=== PATIENT | female | born 1980 | race Caucasian/White ===

== ENCOUNTER → 2016-09-30 | Outpatient (CLI) | payer BC ==
[~2016-09-30] MED LIST: BCP TD; IBU-TAB200 MG PO; MAALOX ANTACID1 TAB PO; NEXIUM 20MG CAP20 MG PO; TUMS 500500 MG PO; VITAMIN C BUFF500 MG PO; ZYRTEC10 MG PO
== END ==
LOC: BHSO 10:54
DX: F31.81 Bipolar II disorder (principal)

== ENCOUNTER → 2016-10-04 | Outpatient (CLI) | payer BC | LOC: BHSO 11:21 | DX: F41.1 Generalized anxiety disorder (principal) ==

== ENCOUNTER → 2016-10-07 | Outpatient (CLI) | payer BC | LOC: BHSO 09:02 | DX: F31.81 Bipolar II disorder (principal) ==

== ENCOUNTER → 2016-10-14 | Outpatient (CLI) | payer BC | LOC: BHSO 10:58 | DX: F33.1 Major depressive disorder, recurrent, moderate (principal) ==

== ENCOUNTER → 2016-10-22 | Outpatient (CLI) | payer BC | LOC: BHSO 14:58 | DX: F31.31 Bipolar disorder, current episode depressed, mild (principal) ==

== ENCOUNTER → 2016-10-28 | Outpatient (CLI) | payer BC | LOC: BHSO 09:03 | DX: F31.81 Bipolar II disorder (principal) ==

== ENCOUNTER → 2016-11-11 | Outpatient (CLI) | payer BC | LOC: BHSO 08:59 | DX: F31.81 Bipolar II disorder (principal) ==

== ENCOUNTER → 2016-11-18 | Outpatient (CLI) | payer BC | LOC: BHSO 08:58 | DX: F31.81 Bipolar II disorder (principal) ==

== ENCOUNTER → 2016-12-02 | Outpatient (CLI) | payer BC | LOC: BHSO 10:59 | DX: F31.81 Bipolar II disorder (principal) ==

== ENCOUNTER → 2016-12-30 | Outpatient (CLI) | payer BC | LOC: BHSO 09:01 | DX: F31.81 Bipolar II disorder (principal) ==

== ENCOUNTER → 2017-01-06 | Outpatient (CLI) | payer BC | LOC: BHSO 10:55 | DX: F31.81 Bipolar II disorder (principal) ==

== ENCOUNTER → 2017-01-13 | Outpatient (CLI) | payer BC | LOC: BHSO 10:55 | DX: F31.81 Bipolar II disorder (principal) ==

== ENCOUNTER → 2017-01-20 | Outpatient (CLI) | payer BC | LOC: BHSO 10:59 | DX: F31.81 Bipolar II disorder (principal) ==

== ENCOUNTER → 2017-01-27 | Outpatient (CLI) | payer BC | LOC: BHSO 11:17 | DX: F31.73 Bipolar disorder, in partial remission, most recent episode manic (principal) ==

== ENCOUNTER → 2017-02-03 | Outpatient (CLI) | payer BC | LOC: BHSO 09:11 | DX: F31.81 Bipolar II disorder (principal) ==

== ENCOUNTER → 2017-02-17 | Outpatient (CLI) | payer BC | LOC: BHSO 10:58 | DX: F31.81 Bipolar II disorder (principal) ==

== ENCOUNTER → 2017-03-10 | Outpatient (CLI) | payer BC | LOC: BHSO 11:00 | DX: F31.81 Bipolar II disorder (principal) ==

== ENCOUNTER → 2017-03-24 | Outpatient (CLI) | payer BC | LOC: BHSO 11:00 | DX: F31.81 Bipolar II disorder (principal) ==

== ENCOUNTER → 2017-04-07 | Outpatient (CLI) | payer BC | LOC: BHSO 11:05 | DX: F31.81 Bipolar II disorder (principal) ==

== ENCOUNTER → 2017-04-14 | Outpatient (CLI) | payer BC | LOC: BHSO 11:39 | DX: F41.1 Generalized anxiety disorder (principal) ==

== ENCOUNTER → 2017-04-21 | Outpatient (CLI) | payer BC | LOC: BHSO 10:59 | DX: F31.81 Bipolar II disorder (principal) ==

== ENCOUNTER → 2017-05-11 | Outpatient (CLI) | payer BC | LOC: BHSO 11:01 | DX: F33.0 Major depressive disorder, recurrent, mild (principal) ==

== ENCOUNTER → 2017-05-26 | Outpatient (CLI) | payer BC | LOC: BHSO 10:59 | DX: F41.1 Generalized anxiety disorder (principal) ==

== ENCOUNTER → 2017-06-09 | Outpatient (CLI) | payer BC | LOC: BHSO 10:57 | DX: F41.1 Generalized anxiety disorder (principal) ==

== ENCOUNTER → 2017-06-30 | Outpatient (CLI) | payer BC | LOC: BHSO 11:05 | DX: F31.81 Bipolar II disorder (principal) ==

== ENCOUNTER → 2017-07-21 | Outpatient (CLI) | payer BC | LOC: BHSO 11:14 | DX: F41.1 Generalized anxiety disorder (principal) ==

== ENCOUNTER → 2017-08-04 | Outpatient (CLI) | payer BC | LOC: BHSO 10:55 | DX: F31.81 Bipolar II disorder (principal) ==

== ENCOUNTER → 2017-08-17 | Outpatient (CLI) | payer BC | LOC: BHSO 13:58 | DX: F31.81 Bipolar II disorder (principal) ==

== ENCOUNTER → 2017-09-01 | Outpatient (CLI) | payer BC | LOC: BHSO 10:56 | DX: F31.81 Bipolar II disorder (principal) ==

== ENCOUNTER → 2017-09-09 | Outpatient (CLI) | payer BC | LOC: BHSO 11:42 | DX: F41.1 Generalized anxiety disorder (principal) ==

== ENCOUNTER → 2017-09-15 | Outpatient (CLI) | payer BC | LOC: BHSO 11:01 | DX: F31.81 Bipolar II disorder (principal) ==

== ENCOUNTER → 2017-09-29 | Outpatient (CLI) | payer BC | LOC: BHSO 16:06 | DX: F31.81 Bipolar II disorder (principal) ==

== ENCOUNTER → 2017-10-25 | Outpatient (CLI) | payer BC | LOC: BHSO 11:08 | DX: F31.81 Bipolar II disorder (principal) ==

== ENCOUNTER → 2017-10-28 | Outpatient (CLI) | payer BC | LOC: BHSO 11:37 | DX: F41.1 Generalized anxiety disorder (principal) | CPT/HCPCS: G0463 ==

== ENCOUNTER → 2018-01-05 | Outpatient (CLI) | payer BC | LOC: BHSO 11:20 | DX: F31.81 Bipolar II disorder (principal) | CPT/HCPCS: G0463 ==

== ENCOUNTER → 2018-01-12 | Outpatient (CLI) | payer BC | LOC: BHSO 15:59 | DX: F33.1 Major depressive disorder, recurrent, moderate (principal) ==

== ENCOUNTER → 2018-02-16 | Outpatient (CLI) | payer BC | LOC: BHSO 15:56 | DX: F41.1 Generalized anxiety disorder (principal) ==

== ENCOUNTER → 2018-02-23 | Outpatient (CLI) | payer BC | LOC: BHSO 11:39 | DX: F31.81 Bipolar II disorder (principal) | CPT/HCPCS: G0463 ==

== ENCOUNTER → 2018-03-16 | Outpatient (CLI) | payer BC | LOC: BHSO 16:02 | DX: F33.2 Major depressive disorder, recurrent severe without psychotic features (principal) ==

== ENCOUNTER → 2018-03-31 | Outpatient (CLI) | payer BC | LOC: BHSO 10:56 | DX: F31.81 Bipolar II disorder (principal) | CPT/HCPCS: G0463 ==

== ENCOUNTER → 2018-04-12 | Outpatient (CLI) | payer BC | LOC: BHSO 16:00 | DX: F41.1 Generalized anxiety disorder (principal) ==

== ENCOUNTER → 2018-04-27 | Outpatient (CLI) | payer BC | LOC: BHSO 10:42 | DX: F31.81 Bipolar II disorder (principal) | CPT/HCPCS: G0463 ==

== ENCOUNTER → 2018-06-01 | Outpatient (CLI) | payer BC | LOC: BHSO 11:42 | DX: F31.81 Bipolar II disorder (principal) | CPT/HCPCS: G0463 ==

== ENCOUNTER → 2018-06-29 | Outpatient (CLI) | payer BC | LOC: BHSO 09:39 | DX: F41.1 Generalized anxiety disorder (principal) | CPT/HCPCS: G0463 ==

== ENCOUNTER → 2018-08-11 | Outpatient (CLI) | payer BC | LOC: BHSO 11:22 | DX: F31.81 Bipolar II disorder (principal) | CPT/HCPCS: G0463 ==

== ENCOUNTER 2018-09-05 05:48 | Inpatient (IN) | payer BC ==
[~2018-09-05] VITALS: Ht 170.2 cm; Wt 107.7 kg
[2018-09-05] VITALS (27 sets, daily range): BP systolic 130–177; BP diastolic 82–113; PULSE 75–107; TEMP 98.1–98.9
[2018-09-05] MEDS ORDERED: ZOLOFT 50MG50 MG PO (06:43)
[2018-09-05] MEDS ORDERED: LAMICTAL200 MG PO (06:43)
[2018-09-05] MEDS ORDERED: SEROQUEL 2525 MG/TAB PO (06:44)
[2018-09-05] MEDS ORDERED: ZYRTEC 10MG10 MG PO (06:44)
[2018-09-05] MEDS ORDERED: PRILOSEC10 MG PO (06:45)
[2018-09-05] MEDS ORDERED: FOLIC ACID 11 MG/TA1 PO (06:45)
[2018-09-05] MEDS ORDERED: PRENATAL MVI (06:46)
[2018-09-05 06:58] LABS: RED BLOOD COUNT 3.72 M/mm3 (4.10-5.30)
[2018-09-05 06:59] LABS: BASO % 0.3 % (0.0-2.0); EOS # 0.1 (0.0-0.7); EOS % 1.5 % (0-4.0); GRAN # 3.6 (1.4-6.5); GRAN % 59.4 % (42.2-75.2); HEMOGLOBIN 11.6 g/dl (12.5-16.0); LYMPH # 1.8 (1.2-3.4); LYMPH % 29.3 % (20.0-51.0); MEAN CELL VOLUME 91 fl (80.0-100.0); MEAN CORPUSCULAR HEMOGLOBIN 31 pg (27.0-31.0); MEAN CORPUSCULAR HGB CONC 34 g/dl (33.0-37.0); MEAN PLATELET VOLUME 12.1 fl (7.4-10.4); MONO # 0.6 (0.1-0.6); PLATELET COUNT 156 K/mm3 (130-400); REDCELL DISTRIBUTION WIDTH-CV 13.6 % (11.5-14.5)
[2018-09-06 00:50] VITALS: BP 153/91; PULSE 78; TEMP 98.1
[2018-09-06 04:00] VITALS: BP 145/96; PULSE 88; TEMP 98.2
[2018-09-06 08:00] VITALS: BP 144/86; PULSE 86; TEMP 98.5
[2018-09-06 12:00] VITALS: BP 146/88; PULSE 80; TEMP 98
[2018-09-06 17:30] VITALS: BP 140/92; PULSE 103; TEMP 98.1
[2018-09-06 22:15] VITALS: BP 152/86; PULSE 95; TEMP 98.4
[2018-09-07 07:10] VITALS: BP 160/94; PULSE 105; TEMP 98.1
[2018-09-07 12:10] VITALS: BP 149/87; PULSE 94; TEMP 98.1
[2018-09-07 16:15] VITALS: BP 143/73; PULSE 100; TEMP 98
[2018-09-07 20:30] VITALS: BP 150/90; PULSE 93; TEMP 98.4
[2018-09-08 00:30] VITALS: BP 146/96; PULSE 97; TEMP 98.8
[2018-09-08 04:00] VITALS: BP 150/88; PULSE 96; TEMP 98.2
[2018-09-08] MEDS ORDERED: PROCARDIA XL90 MG PO (08:47)
[2018-09-08] MEDS ORDERED: PERCOCET 325 MG1 TA2 PO (08:47)
[2018-09-08] MEDS ORDERED: MOTRIN 800800 MG/TAB PO (08:47)
[2018-09-08 09:30] VITALS: BP 156/97; PULSE 88
== END 2018-09-08 18:00 | disposition home or self-care (01) | DRG 788 ==
LOC: OB 05:48
PROVIDERS: Obstetrics & Gynecology
PROC: 10D00Z1 Extraction of Products of Conception, Low, Open Approach (ICD-10-PCS; principal; 2018-09-05)
DX: O32.1XX0 Maternal care for breech presentation, not applicable or unspecified (principal); Z3A.39 39 weeks gestation of pregnancy; Z37.0 Single live birth; O99.344 Other mental disorders complicating childbirth; F32.9 Major depressive disorder, single episode, unspecified; O13.4 Gestational [pregnancy-induced] hypertension without significant proteinuria, complicating childbirth
CPT/HCPCS: J0690; J1885; J2270; J2370; J2405; J2590; J7120

== ENCOUNTER → 2019-01-25 | Outpatient (CLI) | payer BC ==
[~2019-01-25] MED LIST changes: +FOLIC ACID 11 MG/TA1 PO; +LAMICTAL200 MG PO; +MOTRIN 800800 MG/TAB PO; +PERCOCET 325 MG1 TA2 PO; +PRENATAL MVI; +PRILOSEC10 MG PO; +PROCARDIA XL90 MG PO; +SEROQUEL 2525 MG/TAB PO; +ZOLOFT 50MG50 MG PO; +ZYRTEC 10MG10 MG PO
== END ==
LOC: BHSO 15:40
DX: Z76.89 Persons encountering health services in other specified circumstances (principal)
CPT/HCPCS: G0463

== ENCOUNTER → 2019-04-26 | Outpatient (CLI) | payer BC | LOC: BHSO 08:21 | DX: F31.81 Bipolar II disorder (principal) | CPT/HCPCS: G0463 ==

== ENCOUNTER → 2019-09-13 | Outpatient (CLI) | payer BC | LOC: BHSO 08:14 | DX: F31.78 Bipolar disorder, in full remission, most recent episode mixed (principal) | CPT/HCPCS: G0463 ==

== ENCOUNTER → 2019-11-08 | Outpatient (CLI) | payer BC | LOC: BHSO 08:17 | DX: F31.81 Bipolar II disorder (principal) | CPT/HCPCS: G0463 ==

== ENCOUNTER → 2020-03-06 | Outpatient (CLI) | payer BC | LOC: BHSO 08:19 | DX: F31.77 Bipolar disorder, in partial remission, most recent episode mixed (principal) | CPT/HCPCS: G0463 ==

== ENCOUNTER → 2020-04-10 | Outpatient (CLI) | payer BC | LOC: BHSO 08:09 | DX: F31.77 Bipolar disorder, in partial remission, most recent episode mixed (principal) | CPT/HCPCS: G0463 ==

== ENCOUNTER → 2020-05-08 | Outpatient (CLI) | payer BC | LOC: BHSO 08:23 | DX: F31.77 Bipolar disorder, in partial remission, most recent episode mixed (principal) | CPT/HCPCS: G0463 ==

== ENCOUNTER → 2020-06-12 | Outpatient (CLI) | payer BC | LOC: BHSO 08:24 | DX: F31.77 Bipolar disorder, in partial remission, most recent episode mixed (principal) | CPT/HCPCS: G0463 ==

== ENCOUNTER → 2020-06-25 | Outpatient (CLI) | payer BC | LOC: BHSO 08:22 | DX: F41.1 Generalized anxiety disorder (principal) | CPT/HCPCS: G0463 ==

== ENCOUNTER → 2020-07-24 | Outpatient (CLI) | payer BC | LOC: BHSO 08:23 | DX: F31.75 Bipolar disorder, in partial remission, most recent episode depressed (principal) | CPT/HCPCS: G0463 ==

== ENCOUNTER → 2020-10-16 | Outpatient (CLI) | payer BC | LOC: MC.RAD 09-11 11:30 | DX: Z12.31 Encounter for screening mammogram for malignant neoplasm of breast (principal) ==

== ENCOUNTER → 2022-02-18 | Outpatient (CLI) | payer BC | LOC: MC.RAD 14:45 | DX: Z12.31 Encounter for screening mammogram for malignant neoplasm of breast (principal) ==

== ENCOUNTER → 2024-07-23 | Outpatient (CLI) | payer BC | LOC: MC.RAD 11:30 | DX: Z12.31 Encounter for screening mammogram for malignant neoplasm of breast (principal) ==